=== PATIENT | female | born 1925 ===

== ENCOUNTER 2017-05-28 10:40 | Inpatient (IN) | payer MEDICAID, MEDICARE ==
[2017-05-28 10:42] VITALS: BMI 19.5
--- NOTE | 2017-05-28 11:10 | ED PDOC ---
Upper Extremity Pain/Injury Time Seen by Provider: 05/28/17 10:52 Chief Complaint (Nursing): Upper Extremity Problem/Injury Chief Complaint (Provider): Upper and Lower Extremity Problem/Injury History Per: Patient History/Exam Limitations: no limitations Onset/Duration Of Symptoms: Mins Current Symptoms Are (Timing): Still Present Additional Complaint(s): Pt is an 89 y/o female with a past medical history of hypertension who presents to the emergency department with a complaint of a right wrist pain, and knee pain bilaterally (right worse than left) after crossing and falling on the sidewalk frontward onto her hand and knees just prior to arrival. Patient takes Aspirin 81 mg daily. Denies headache. Pt did not hit her head. No LOC. PMD:. Dr. Genaro Kramer MD Past Medical History Reviewed: Historical Data, Nursing Documentation, Vital Signs Vital Signs: Last Vital Signs Temp 98.5 F 05/28/17 10:42 Pulse 63 05/28/17 10:42 Resp 18 05/28/17 10:42 BP 184/89 H 05/28/17 10:42 Pulse Ox 98 05/28/17 10:42 - Medical History PMH: HTN - Surgical History Surgical History: Appendectomy, Cholecystectomy - Family History Family History: States: No Known Family Hx - Social History Current smoker - smoking cessation education provided: No Alcohol: None Drugs: Denies - Home Medications Home Medications: Ambulatory Orders Medication Instructions Recorded Aspirin [Ecotrin] 81 mg PO DAILY 05/28/17 Furosemide [Lasix] 20 mg PO MWF 05/28/17 Metoprolol Tartrate [Lopressor] 25 mg PO BID 05/28/17 Multivitamin [Daily Akua] 1 tab PO DAILY 05/28/17 amLODIPine [Norvasc] 10 mg PO DAILY 05/28/17 Cephalexin [Keflex] 500 mg PO Q6 cap 06/02/17 Enoxaparin [Lovenox] 30 mg SC DAILY syr 06/02/17 Magnesium Oxide [Mag-Ox] 400 mg PO BID tab 06/02/17 guaiFENesin/Dextromethorphan 10 ml PO Q6 PRN 06/02/17 [Robitussin DM] - Allergies Allergies/Adverse Reactions: Allergies Allergy/AdvReac Type Severity Reaction Status Date / Time No Known Allergies Allergy Verified 05/28/17 10:52 Review of Systems ROS Statement: Except As Marked, All Systems Reviewed And Found Negative Constitutional: Negative for: Fever Cardiovascular: Negative for: Chest Pain Respiratory: Negative for: Shortness of Breath Gastrointestinal: Negative for: Nausea, Vomiting Musculoskeletal: Positive for: Hand Pain (Right wrist pain), Other (Knee pain b/ l) Neurological: Negative for: Headache Physical Exam - Reviewed Nursing Documentation Reviewed: Yes Vital Signs Reviewed: Yes - Physical Exam Appears: Positive for: Non-toxic, No Acute Distress Head Exam: Positive for: ATRAUMATIC, NORMAL INSPECTION, NORMOCEPHALIC Skin: Positive for: Normal Color, Warm, Dry Neck: Positive for: Normal, Supple Cardiovascular/Chest: Positive for: Regular Rate, Rhythm. Negative for: Murmur Respiratory: Positive for: Normal Breath Sounds. Negative for: Accessory Muscle Use, Respiratory Distress Gastrointestinal/Abdominal: Positive for: Normal Exam, Bowel Sounds, Soft. Negative for: Tenderness Back: Positive for: Normal Inspection Extremity: Positive for: Normal ROM (ROM intact with mild tenderness of the distal region of the right hand), Tenderness (Abrasion to the knees b/l w/ tenderness to the right patella), Swelling (Right hand/wrist with swelling/ deformity), Other (No neurovascular deficits) Neurologic/Psych: Positive for: Alert, Oriented (x3) - Laboratory Results Result Diagrams: 06/02/17 13:10 06/01/17 10:00 - ECG O2 Sat by Pulse Oximetry: 98 (RA) Pulse Ox Interpretation: Normal Medical Decision Making Medical Decision Making: Time: 10:55 Initial impression: Soft tissue swelling with hematoma s/p fall vs. fracture Initial plan: --Motrin 400 mg PO --Hand right x-ray --Wrist right x-ray --Knees BI x-ray --Reevaluation Time: 12:00 --X-rays read by me with Colles' fracture noted to the wrist. --Request for consult with Dr. Mere MONTALVO Time: 12:29 --Type and screen --EKG --BNP --BMP --Troponin I --PTT & INR --Chest x-ray --Urinalysis --Dr. Severino advised patient to be admitted to Med/Surg under the care of Dr. Kramer. This fracture will need to be repaired in the operating room. Time: 12:52 --Orthopedic Consult with Dr. Christopher Severino for Colles Fracture. --Admit to hospital routine as Inpatient in Med/Surg for 1) Right Colle's Fracture, 2) S/P Fall, 3) Knee contusions, 4) Hypertension under the care of Dr. Angelita Kramer Time: 12:44 --Knee x-ray FINDINGS: BONES: Right knee findings: The current study reveals no evidence of acute displaced fracture nor dislocation. The osseous structures appear intact. Joint spaces relatively preserved. Moderately large localized area of prepatellar soft tissue contusion -swelling. Left knee findings: No evidence of acute displaced fracture nor dislocation. The osseous structures intact. Joint spaces preserved. Suspect trace suprapatellar joint effusion. . Impression: No definitive radiographic evidence of acute displaced fracture nor dislocation. Moderately large localized area of prepatellar soft tissue contusion - swelling Time: 12:51 --Wrist x-ray FINDINGS: BONES: Current study reveals apparent comminuted fracture of the distal right radius with dorsal angulation of the distal fragment. There is also deformity of the distal ulna which is most consistent with old healed fracture deformity of. There is also a rounded cystic focus within the base of the ulnar styloid. JOINTS: No evidence of dislocation SOFT TISSUES: Surrounding soft tissue swelling. OTHER FINDINGS: None. IMPRESSION: Comminuted fracture distal right radius with dorsal angulation of the distal fragments. Findings most consistent with old healed fracture deformity distal ulna. Surrounding soft tissue swelling. Time: 12:52 --hand x-ray FINDINGS: BONES: Current study reveals apparent comminuted fracture of the distal right radius with dorsal angulation of the distal fragment. There is also deformity of the distal ulna which is most consistent with old healed fracture deformity of. There is also a rounded cystic focus within the base of the ulnar styloid. JOINTS: Normal. No osteoarthritic changes. SOFT TISSUES: Surrounding soft tissue swelling OTHER FINDINGS: None. IMPRESSION: Current study reveals apparent comminuted fracture of the distal right radius with dorsal angulation of the distal fragment. There is also deformity of the distal ulna which is most consistent with old healed fracture deformity of. There is also a rounded cystic focus within the base of the ulnar styloid. Scribe Attestation: Documented by Opal Sigala, acting as a scribe for Jose Ramon Teran MD. Provider Scribe Attestation: All medical record entries made by the Scribe were at my direction and personally dictated by me. I have reviewed the chart and agree that the record accurately reflects my personal performance of the history, physical exam, medical decision making, and the department course for this patient. I have also personally directed, reviewed, and agree with the discharge instructions and disposition. Disposition - Clinical Impression Clinical Impression: Colles' fracture of right radius, Fall, Contusion of knee, left, Contusion of knee, right, Hypertension - Patient ED Disposition Is Patient to be Admitted: Yes - Disposition Disposition: Transfer of Care (Admitted an Inpatient Med/Surg) Disposition Time: 12:51 Condition: FAIR - Pt Status Changed To: Hospital Disposition Of: Inpatient - Admit Certification Admit to Inpatient:: After my assessment, the patient will require hospitalization for at least two midnights. This is because of the severity of symptoms shown, intensity of services needed, and/or the medical risk in this patient being treated as an outpatient.
--- NOTE | 2017-05-28 12:46 | RAD ---
PROCEDURE: Bilateral knees 05/28/2017. AP lateral and sunrise views of the right and left knees performed. HISTORY: Bilateral knee trauma. COMPARISON: No prior FINDINGS: BONES: Right knee findings: The current study reveals no evidence of acute displaced fracture nor dislocation. The osseous structures appear intact. Joint spaces relatively preserved. Moderately large localized area of prepatellar soft tissue contusion -swelling. Left knee findings: No evidence of acute displaced fracture nor dislocation. The osseous structures intact. Joint spaces preserved. Suspect trace suprapatellar joint effusion. . Impression: No definitive radiographic evidence of acute displaced fracture nor dislocation. Moderately large localized area of prepatellar soft tissue contusion - swelling
[2017-05-28 12:47] LABS: RBC URINE 3 /hpf (0-3); URINE BILIRUBIN NEGATIVE (NEGATIVE); URINE BLOOD NEGATIVE (NEGATIVE); URINE COLOR STRAW (YELLOW); URINE GLUCOSE (UA) NEG (Normal); URINE KETONE NEGATIVE (NEGATIVE); URINE LEUKOCYTE ESTERASE MOD Leu/uL (Negative); URINE PROTEIN NEGATIVE (NEGATIVE); URINE UROBILINOGEN 0.2-1.0 mg/dL (0.2-1.0); WBC URINE 1 /hpf (0-5)
[2017-05-28 12:50] LABS: BASO % 0.6 % (0.0-2.0); EOS # 0.1 K/uL (0.0-0.7); EOS % 1.6 % (0.0-4.0); HEMATOCRIT 37.3 % (34.0-47.0); LYMPH # 1.4 K/uL (1.0-4.3); LYMPH % 20.1 % (20.0-40.0); MEAN CORPUSCULAR HEMOGLOBIN 31.9 pg (27.0-31.0); MEAN CORPUSCULAR HGB CONC 32.9 g/dL (33.0-37.0); MEAN PLATELET VOLUME 9.5 fl (7.2-11.7); MONO # 0.5 K/uL (0.0-0.8); MONO % 7.4 % (0.0-10.0); NEUT # 4.8 K/uL (1.8-7.0); NEUT % 70.3 % (50.0-75.0); RED CELL DISTRIBUTION WIDTH 13.6 % (11.5-14.5); WHITE BLOOD COUNT 6.9 K/uL (4.8-10.8)
--- NOTE | 2017-05-28 12:53 | RAD ---
PROCEDURE: Right wrist dated 05/28/2017 HISTORY: Right hand/wrist trauma COMPARISON: Comparison made with concurrent radiographs of the right hand FINDINGS: BONES: Current study reveals apparent comminuted fracture of the distal right radius with dorsal angulation of the distal fragment. There is also deformity of the distal ulna which is most consistent with old healed fracture deformity of. There is also a rounded cystic focus within the base of the ulnar styloid. JOINTS: No evidence of dislocation SOFT TISSUES: Surrounding soft tissue swelling. OTHER FINDINGS: None. IMPRESSION: Comminuted fracture distal right radius with dorsal angulation of the distal fragments. Findings most consistent with old healed fracture deformity distal ulna. Surrounding soft tissue swelling. The
--- NOTE | 2017-05-28 12:54 | RAD ---
PROCEDURE: Right Hand Radiographs. HISTORY: Right hand/wrist trauma COMPARISON: None. FINDINGS: BONES: Current study reveals apparent comminuted fracture of the distal right radius with dorsal angulation of the distal fragment. There is also deformity of the distal ulna which is most consistent with old healed fracture deformity of. There is also a rounded cystic focus within the base of the ulnar styloid. JOINTS: Normal. No osteoarthritic changes. SOFT TISSUES: Surrounding soft tissue swelling OTHER FINDINGS: None. IMPRESSION: Current study reveals apparent comminuted fracture of the distal right radius with dorsal angulation of the distal fragment. There is also deformity of the distal ulna which is most consistent with old healed fracture deformity of. There is also a rounded cystic focus within the base of the ulnar styloid.
[2017-05-28 12:57] LABS: ALB/GLOB RATIO 1.3 (1.0-2.1); ALKALINE PHOSPHATASE 113 U/L (38-126); ALT/SGPT 34 U/L (9-52); AST/SGOT 37 U/L (14-36); BILIRUBIN,TOTAL 0.6 mg/dl (0.2-1.3); BLOOD UREA NITROGEN 14 mg/dl (7-17); CALCIUM 9.4 mg/dL (8.4-10.2); CARBON DIOXIDE 27 mmol/L (22-30); CHLORIDE 107 mmol/L (98-107); GFR AFRICAN-AMERICAN 57; GLUCOSE,RANDOM 109 mg/dL (65-105); POTASSIUM 4.3 MMOL/L (3.6-5.0); SODIUM 143 mmol/l (132-148); TOTAL PROTEIN 7.6 G/DL (6.3-8.2)
[2017-05-28 13:01] LABS: PARTIAL THROMBOPLASTIN TIME 30.6 Seconds (25.6-37.1)
--- NOTE | 2017-05-28 15:42 | RAD ---
HISTORY: s/p fall COMPARISON: No prior. TECHNIQUE: Chest PA and lateral FINDINGS: LUNGS: Mild hyperinflation. Rule out underlying chronic changes of emphysema or COPD. Mild bibasilar atelectasis with slight elevation left hemidiaphragm. Mild biapical pleural thickening. PLEURA: No significant pleural effusion identified. No pneumothorax apparent. CARDIOVASCULAR: Heart appears borderline enlarged. Aorta is ectatic and uncoiled. Prominent pulmonary arteries; rule out underlying pulmonary arterial hypertension however the possibility of mediastinal adenopathy not excluded. Consider followup CT scan of the chest further evaluation. OSSEOUS STRUCTURES: Mild multilevel degenerative spondylosis of the thoracic spine. Chronic anterior wedge deformities of several upper/mid thoracic segments. VISUALIZED UPPER ABDOMEN: Normal. OTHER FINDINGS: None. IMPRESSION: Mild hyperinflation; rule out underlying chronic changes of emphysema or COPD Mild bibasilar atelectasis. Enlarged pulmonary arteries; rule out underlying pulmonary arterial hypertension; possibility of hilar adenopathy not excluded. Consider followup CT scan of the chest for further evaluation.
--- NOTE | 2017-05-28 19:45 | CARD ---
APPROVED REPORT EKG Measurement Heart [id number] IA [id number] [id number] <Conclusion> Sinus bradycardia Septal infarct, age undetermined Abnormal ECG
[2017-05-29] MEDS ORDERED: Patient's Own Med (Multivitamin [Daily Vite] 1 TAB) PO SCH (09:00)
--- NOTE | 2017-05-29 09:26 | CP.PCM.CON ---
History of Present Illness - History of Present Illness History of Present Illness: ID: 89 yo female CC: pain deformity and restricted ROM R wrist HPI: 89 yofemale fell while walkinG ON SIDEWALK YESTERDAY-PT SUSTAINED FALL On outstretched r upper ext Pt presents with pain and deformity R wrist- pt with marked discomfort,pain and restricted ROM R wrist presents to [facility] ER- pt evaluated, [place] of comorbidities, DR Sauceda wished pt admitted fro medical stabilization and then to OR Past Patient History - Past Social History Smoking Status: Never Smoked - CARDIAC Hx Cardiac Disorders: Yes Hx Hypertension: Yes - MUSCULOSKELETAL/RHEUMATOLOGICAL Hx Falls: Yes - PSYCHIATRIC Hx Substance Use: No - SURGICAL HISTORY Hx Appendectomy: Yes Hx Cholecystectomy: Yes - ANESTHESIA Hx Anesthesia: Yes Hx Anesthesia Reactions: No Meds Allergies/Adverse Reactions: Allergies Allergy/AdvReac Type Severity Reaction Status Date / Time No Known Allergies Allergy Verified 05/28/17 10:52 - Medications Medications: Current Medications Acetaminophen (Tylenol 325mg Tab) 650 mg PO Q6 PRN PRN Reason: Pain, moderate (4-7) Last Admin: 05/29/17 00:59 Dose: 650 mg Amlodipine Besylate (Norvasc) 10 mg PO DAILY [facility] Furosemide (Lasix) 20 mg PO MWF [facility] Home Med (Multivitamin [Daily Akua]) 1 tab PO DAILY [facility] Metoprolol Tartrate (Lopressor) 25 mg PO BID [facility] Last Admin: 05/28/17 23:35 Dose: 25 mg Multivitamins/Minerals (Therapeutic-M Tab) 1 tab PO DAILY [facility] Physical Exam - Additional Findings Additional findings: O/E systemic- as per DR Kramer Musculoskekltal stance/gait- deferred R upper ext with short arm splint applied pt with decreased sensation first 3 fingers R Hand Results - Vital Signs Recent Vital Signs: Last Vital Signs Temp 97.6 F 05/29/17 08:45 Pulse 61 05/29/17 08:45 Resp 20 05/29/17 08:45 BP 171/80 H 05/29/17 08:45 Pulse Ox 94 L 05/29/17 08:45 - Labs Result Diagrams: 05/28/17 12:44 05/28/17 12:44 - Impressions Impression: Xray- reveals comminuted displaced/ angulated distal; radius fracture Assessment & Plan - Assessment and Plan (Free Text) Assessment: A- comminuted/displaced distal radius fx pt with signs of median nerve compression no evidence for compartment syndrome p- TO or WEDNESDAY FOR orif DISPLACED/COMMINUTED DISTAL RADIUS FX CARPAL TUNNEL RELEASE WELL ENCOUNTER IS ACCOMPLISHED WITH GISELLE AND Memo, 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
[2017-05-29] MEDS: Multivitamin With Minerals Tab PO SCH (09:36)
--- NOTE | 2017-05-29 16:43 | CT ---
PROCEDURE: CT HEAD WITHOUT CONTRAST. HISTORY: falls COMPARISON: None available. TECHNIQUE: Axial computed tomography images were obtained through the head/brain without intravenous contrast. Radiation dose: Total exam DLP = 875.76 MGy-cm. This CT exam was performed using one or more of the following dose reduction techniques: Automated exposure control, adjustment of the mA and/or kV according to patient size, and/or use of iterative reconstruction technique. FINDINGS: HEMORRHAGE: No intracranial hemorrhage. BRAIN: There are mild chronic microangiopathic changes. No atrophy or chronic microvascular ischemic changes. VENTRICLES: There is mild age related global parenchymal volume loss and proportionate enlargement of the ventricles and cortical sulci. There is a cavum septum pellucidum. CALVARIUM: The skull base and calvarium are normal. . PARANASAL SINUSES: Predominantly clear. MASTOID AIR CELLS: Predominantly clear. OTHER FINDINGS: None. IMPRESSION: No acute intracranial abnormality. Mild chronic microangiopathic changes and mild age-related global parenchymal volume loss.
[2017-05-29] MEDS: Magnesium Oxide 400 mg Tab UD PO SCH (17:07)
[2017-05-29] MEDS ORDERED: guaiFENesin DM 200 mg-20 mg/10 ml UD PO PRN (22:29)
--- NOTE | 2017-05-30 00:58 | HP ---
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 The patient sustained pain on the right upper extremity as well as wounds in both knees. The patient was evaluated in the emergency room where she was found to have fracture of the right radius. Orthopedic consultation was done and the patient was admitted for further management. The patient had orthopedic consultation with Dr. Severino. The patient denied to have any loss of consciousness or any head trauma at the time of this fall. The patient denied to have any previous falls also before this time. REVIEW OF SYSTEMS: Negative. ALLERGIES: NO KNOWN ALLERGY. HOME MEDICATIONS: Include metoprolol, aspirin, Lasix 20 mg three times a week. SOCIAL HISTORY: No history of smoking, ETOH or substance abuse. PAST MEDICAL HISTORY: Hypertension, osteoarthritis, osteoporosis. FAMILY HISTORY: Noncontributory. PHYSICAL EXAMINATION: GENERAL: The patient is in bed, comfortable, not in any cardiopulmonary distress. VITAL SIGNS: Blood pressure 112/79, pulse is 80, respiratory rate 18 and temperature 98.2. HEENT: Pupils are equal and reactive to light and normal-appearing mucosa of the conjunctivae, oropharyngeal and nasal membrane mucosa. NECK: Supple. No JVD. No carotid bruit. No lymph node. No thyromegaly. CHEST AND LUNGS: Bilateral symmetrical expansion. Good air exchange. No rales. No rhonchi. CARDIOVASCULAR SYSTEM: PMI not localized. No additional sounds. ABDOMEN: Normoactive bowel sounds. No tenderness. No organomegaly. No masses. EXTREMITIES: Bilateral abrasion with both knees and the right upper extremity is in the cast. CENTRAL NERVOUS SYSTEM: Alert, awake and oriented x3 and no neurological deficit could be appreciated. ASSESSMENT: 1. Mechanical fall with fracture of the right radius and multiple skin abrasions. 2. Hypertension. 3. Osteoarthritis. PLAN: We will do echocardiogram and cardiac clearance and prepare the patient for surgery as per orthopedics. We will give also magnesium oxide 400 mg twice a day and stop aspirin as well as the Lasix and preparation for the surgery. Angelita Kramer MD [facility] # [id number] MTDMary
--- NOTE | 2017-05-30 02:26 | CON ---
DATE: 05/29/2017 REASON FOR CONSULTATION: Preoperative evaluation. HISTORY OF PRESENT ILLNESS: The patient is 89 years old female who has history of hypertension, who sustained a fall on the street with comminuted right distal radial fracture and being considered for orthopedic surgery on Wednesday. The patient denies fainting or passing out. When she fell on the street, the patient was by herself unattended, she was walking. The patient did sustain falls similar to that in the past with fracture of the right wrist. MEDICATIONS: Lasix 40 mg p.o. Wednesday, Wednesday, and Wednesday; Lopressor 25 mg twice a day; magnesium oxide 400 mg twice a day; Norvasc 10 mg once a day; Tylenol 1 tablet q.6h. p.r.n.. SOCIAL HISTORY: The patient is a nonsmoker. She lives with her daughter. REVIEW OF SYSTEMS: No dizziness. No palpitations. No fever or chills. No diarrhea. No progressive amnesia. PHYSICAL EXAMINATION: GENERAL: The patient is an elderly female, who does not appear to be in acute distress. VITAL SIGNS: Blood pressure 171/80, heart rate 61, temperature 97.6, and respirations 20. HEENT: Temporal wasting. Neck rigidity. CHEST: Clear. HEART: S1 and S2, regular. ABDOMEN: Soft. EXTREMITIES: No edema. A cast is applied to right forearm. LABORATORY DATA: Hemoglobin and hematocrit 12.3 and 37.3, white count and platelet counts are within normal limits. SMA-7 is within normal limits except for glucose of 109. PT/PTT are within normal limits. One set of troponin is negative. EKG revealed sinus bradycardia at a rate of 57. Poor R-wave progression. Right wrist and right hand x-ray revealed angulated comminuted fracture of the distal radius with an old fracture of the distal ulna. ASSESSMENT: 1. Status post fall with comminuted fracture of the distal right ulna with dorsal angulation. 2. Rule out syncope episode. 3. Hypertension. 4. Mild sinus bradycardia. RECOMMENDATIONS: Hold Lopressor for heart rate below 60. Continue Norvasc at 10 mg once a day. Obtain an echocardiogram and carotid Doppler as well as CT scan without contrast prior to okaying the patient for orthopedic surgery on Wednesday. Ran Lopes MD
[2017-05-30] MEDS: Multivitamin With Minerals Tab PO SCH (08:55)
[2017-05-30] MEDS: Magnesium Oxide 400 mg Tab UD PO SCH ×2 (08:55→16:47)
--- NOTE | 2017-05-30 09:44 | US ---
PROCEDURE: Duplex ultrasound of the carotid and vertebral arteries. HISTORY: falls COMPARISON: None available. TECHNIQUE: Grayscale and duplex Doppler evaluation of the cervical carotid and vertebral arteries were performed. The common carotid, carotid bifurcations and cervical ICA and proximal ECA were evaluated. The vertebral arteries were evaluated for gross patency and direction. FINDINGS: RIGHT CAROTID ARTERIES: Common Carotid Artery: Normal. Maximal flow velocity of 75.4 cm/s. Carotid Bifurcation: There are calcified no atherosclerotic plaques in the carotid bulbs without luminal narrowing. Internal Carotid Artery:Normal. Maximal flow velocity of 53.1 cm/s. External Carotid Artery (proximal branches): Normal. Maximal flow velocity of 59.6 cm/s. ICA/CCA Ratio: LEFT CAROTID ARTERIES: Common Carotid Artery: Normal. Maximal flow velocity of 87.9 cm/s. Carotid Bifurcation: Normal. Internal Carotid Artery:Normal. Maximal flow velocity of 59.5 cm/s. External Carotid Artery (proximal branches): Normal. Maximal flow velocity of 67.3 cm/s. ICA/CCA Ratio: VERTEBRAL ARTERIES: Right Vertebral Artery: Patent. Antegrade flow. Left Vertebral Artery: Patent. Antegrade flow. OTHER FINDINGS: None. IMPRESSION: No hemodynamically significant stenosis.
--- NOTE | 2017-05-30 10:16 | CP.PCM.PN ---
Subjective - Date & Time of Evaluation Date of Evaluation: 05/30/17 Time of Evaluation: 10:10 - Subjective Subjective: S- pain and restricted ROM swelling R wrist Objective - Vital Signs/Intake and Output Vital Signs (last 24 hours): Temp Pulse Resp BP Pulse Ox 97.9 F 68 18 136/73 93 L 05/30/17 08:21 05/30/17 08:21 05/30/17 08:21 05/30/17 08:56 05/30/17 08:21 - Medications Medications: Current Medications Acetaminophen (Tylenol 325mg Tab) 650 mg PO Q6 PRN PRN Reason: Pain, moderate (4-7) Last Admin: 05/29/17 21:39 Dose: 650 mg Amlodipine Besylate (Norvasc) 10 mg PO DAILY [facility] Last Admin: 05/30/17 08:56 Dose: 10 mg Guaifenesin/Dextromethorphan (Robitussin Dm) 10 ml PO Q6 PRN PRN Reason: Cough Home Med (Multivitamin [Daily Akua]) 1 tab PO DAILY [facility] Magnesium Oxide (Mag-Ox) 400 mg PO BID [facility] Last Admin: 05/30/17 08:55 Dose: 400 mg Metoprolol Tartrate (Lopressor) 25 mg PO BID [facility] Last Admin: 05/30/17 08:56 Dose: 25 mg Multivitamins/Minerals (Therapeutic-M Tab) 1 tab PO DAILY [facility] Last Admin: 05/30/17 08:55 Dose: 1 tab - Labs Labs: PT 10.8 Seconds (9.8-13.1) 05/28/17 12:44 INR 1.1 (0.9-1.2) 05/28/17 12:44 APTT 30.6 Seconds (25.6-37.1) 05/28/17 12:44 - Additional Findings Additional findings: Objective systemic- unchanged Musculoskekltal stance/gait- defrred long arm splint intact N/V intact persistent decrease in sensation first 3 fingers R hand Assessment and Plan - Assessment and Plan (Free Text) Assessment: A- distal radius fx- comminuted/displaced evidence of carpal tunnel syndrome as well P- to OR for ORIF displaced/comminuted distal radius fx and release carpal tunnel SURGWERY COULD NOT BE ACCOMPLISHED OVER WEEKEND BEACUSE OF PERSISITENT SWELLING AND LACK OF MEDICAL CLEARANCE iNFORMED CONSENT OBTAINED FROM PT AND DAUGHTER IN 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
[2017-05-31] MEDS: Lactated Ringer's 1,000 ML IV SCH (00:03)
--- NOTE | 2017-05-31 00:28 | PN ---
DATE: SUBJECTIVE: The patient denies any chest pain or shortness of breath. PHYSICAL EXAMINATION: VITAL SIGNS: Blood pressure 121/66, heart rate 90, temperature 98.9 and respirations 20. HEENT: Normocephalic. CHEST: Clear. HEART: S1 and S2 regular. EXTREMITIES: A cast is applied to the right forearm. ASSESSMENT: 1. Comminuted angulated distal right radius fracture. 2. Status post fall. 3. Hypertension. RECOMMENDATIONS: Continue Lopressor 25 mg twice a day. Norvasc at 10 mg once a day. I did review the CT scan of the head, which I ordered yesterday and revealed mild chronic microangiopathic changes. I did review the cardiac study, which revealed normal left ventricular systolic function. The patient can undergo her orthopedic surgery from the cardiac point of view with postoperative telemetry monitoring. Ran Lopes MD
[2017-05-31] MEDS: Magnesium Oxide 400 mg Tab UD PO SCH (08:50)
[2017-05-31] MEDS: Multivitamin With Minerals Tab PO SCH (08:51)
--- NOTE | 2017-05-31 10:01 | CARD ---
APPROVED REPORT EXAM: Two-dimensional and M-mode echocardiogram with Doppler and color Doppler. Other Information Quality : AverageRhythm : Tachycardia INDICATION Pre-Op 2D DIMENSIONS IVSd0.73 (0.7-1.1cm)LVDd3.99 (3.9-5.9cm) PWd1.10 (0.7-1.1cm)IVSs1.02 (0.8-1.2cm) LVDs2.81 (2.5-4.0cm)FS (%) 29.7 % PWs0.93 (0.8-1.2cm) M-Mode DIMENSIONS Left Atrium (MM)2.06 (2.5-4.0cm)IVSd0.94 (0.7-1.1cm) Aortic Root3.09 (2.2-3.7cm)LVDd5.74 (4.0-5.6cm) Aortic Cusp Exc.1.68 (1.5-2.0cm)PWd0.74 (0.7-1.1cm) IVSs1.03 cmFS (%) 36 % LVDs3.68 (2.0-3.8cm)PWs0.94 cm Mitral Valve MV E Yzahzijv77.9cm/sMV DECEL [id number] A Fdugslez85.0cm/s MV DLK37apR/A ratio0.7MVA (PHT)3.55cm2 TDI Lateral E' Peak V7.99cm/sMedial E' Peak V5.46cm/sE/Lateral E'9.0 E/Medial E'13.2 Pulmonary Valve PV Peak Grlyjkzi274.7cm/s Tricuspid Valve TR Peak Iepfrtue922yf/sRAP [id number] Peak Gr.29mmHg CUII23gvEt LEFT VENTRICLE The left ventricle is normal size. There is normal left ventricular wall thickness. The left ventricular function is normal. The left ventricular ejection fraction is 55-60% There is normal LV segmental wall motion. Transmitral Doppler flow pattern is Grade I-abnormal relaxation pattern. No left ventricle thrombus noted on this study. There is no ventricular septal defect visualized. There is no left ventricular aneurysm. There is no mass noted in the left ventricle. RIGHT VENTRICLE The right ventricle is normal size. There is normal right ventricular wall thickness. The right ventricular systolic function is normal. ATRIA The left atrium size is normal. The right atrium size is normal. The interatrial septum is intact with no evidence for an atrial septal defect. AORTIC VALVE The aortic valve is normal in structure and function. No aortic regurgitation is present. There is no aortic valvular stenosis. There is no aortic valvular vegetation. MITRAL VALVE The mitral valve is normal in structure and function. There is no evidence of mitral valve prolapse. There is no mitral valve stenosis. There is no mitral valve regurgitation noted. TRICUSPID VALVE The tricuspid valve is normal in structure and function. There is no tricuspid valve regurgitation noted. There is no tricuspid valve prolapse or vegetation. There is no tricuspid valve stenosis. PULMONIC VALVE The pulmonary valve is normal in structure and function. There is no pulmonic valvular regurgitation. There is no pulmonic valvular stenosis. GREAT VESSELS The aortic root is normal in size. The ascending aorta is normal in size. The IVC is normal in size and collapses >50% with inspiration. PERICARDIAL EFFUSION The pericardium appears normal. There is no pleural effusion. <Conclusion> Normal Echocardiogram
[2017-05-31] MEDS ORDERED: Bupivacaine 0.5% Inj(30mL) ONE (11:09)
[2017-05-31] MEDS ORDERED: Lidocaine 1% Inj (20ml) ONE (11:09)
[2017-05-31] MEDS ORDERED: methylPREDNISolone Depo 80 mg/ml Inj ONE (11:09)
[2017-05-31] MEDS ORDERED: Rocuronium 10 mg/ml (5 ml) ONE (11:09)
[2017-05-31] MEDS ORDERED: Propofol 10 mg/ml Inj (20 ML) ONE (11:09)
[2017-05-31] MEDS ORDERED: Lactated Ringer's 1,000 ML IV ONE ×2 (11:15→18:07)
[2017-05-31] MEDS ORDERED: ePHEDrine 50 mg/ml Inj ONE (11:19)
[2017-05-31] MEDS ORDERED: Neostigmine Methylsulfate 3mg/3ml Syringe IV ONE (12:53)
[2017-05-31] MEDS ORDERED: Bacitracin Ointment 30 GM TUBE ONE (13:17)
--- NOTE | 2017-05-31 13:33 | PCM.SURG1 ---
Surgeon's Initial Post Op Note - Surgeon's Notes Surgeon: Mere Registered Nurse Midwife: MICHAELLE Norris Type of Anesthesia: General Endo Anesthesia Administered By: DR Oliverio Regan Pre-Operative Diagnosis: Dispalced/angulated distal radius fx. carpal tunnel syndrome. flexor tenosynovitis Operative Findings: as above Post-Operative Diagnosis: same Operation Performed: ORIF displaced/angulated distal radius fx. release L carpal tunne;. partial median neurolysis. partial flexor tenosynovectomy. applx volar splint Specimen/Specimens Removed: fx callous/tenosynovium/epineurium Estimated Blood Loss: EBL {In ML}: 10 Blood Products Given: N/A Drains Used: No Drains Post-Op Condition: Good Date of Surgery/Procedure: 05/31/17 Time of Surgery/Procedure: 12:05 (time in room/anestheisa indcution time 11:15)
[2017-05-31] MEDS ORDERED: HYDROmorphone 0.5 mg/0.5 ml ISec IVP PRN (14:30)
--- NOTE | 2017-05-31 14:34 | PCM.ANESB4 ---
Infraclavicular Block - Femoral Nerve Block Date of Procedure: 05/31/17 Anesthesiologist: Oliverio Regan Pre-Procedure Diagnosis: Distal Right Radius Fracture Post-Procedure Diagnosis: same Procedure Performed: Brachial Plexus at the Infraclavicular area Right - Procedure Infraclavicular Block: The procedure was explained to the patient that it is for the post-operative pain management. Consent was obtained after a thorough discussion with the patient regarding the benefits and possible complications of local anesthetic block of the brachial plexus at the infraclavicular area. The patient was brought to the post-anesthesia care unit and standard monitors were applied. Time-out was held with the circulating nurse to confirm the correct surgery and the appropriate block. After applying oxygen by nasal cannula and administering IV Sedation, patient's head was gently rotated away from the operative shoulder and the area medial to the coracoid process and inferior to the clavicle was carefully palpated. The ultrasound transducer was then applied to the skin in the transverse plane and the brachial plexus was visualized surrounding the axillary artery and deep to the pectoralis major and minor muscles. After thorough identification, this area was prepped with Betadine solution three times and 1 % Lidocaine was injected subcutaneously for topical anesthesia. At this point, a #21 gauge Stimuplex 4-inch needle was inserted cephalad to the ultrasound transducer and inferior to the clavicle in-plane towards the posterior aspect of the axillary artery. Needle advancement was performed carefully under ultrasound visualization. Nerve stimulator was used and twitch of the affected extremity including fingers, hand, wrist and elbow was obtained at current of _0.4MA. After repeated negative aspiration, _15cc of _0.5 bupivacaine was injected. Under ultrasound guidance the local anesthetics were observed surrounding the cords of the brachial plexus. The needle was removed intact and sterile dressing was applied. The patient had stable vital signs, was conscious and in no apparent distress. The patient tolerated the infraclavicular block of the brachial plexus well with stable vital signs.
--- NOTE | 2017-05-31 17:36 | RAD ---
PROCEDURE: Right Wrist Radiographs. HISTORY: s/p orif rt. radius fx COMPARISON: Right wrist 05/28/2017 FINDINGS: BONES: Patient is status post open reduction internal fixation of distal right radial fracture via a solitary compression plate at the volar side of the distal right radius transfixed by at least 9 screws. Postop soft tissue changes are identified. Ulna remains intact though with a probable old healed fracture. Carpal bones are remarkable only for degenerative joint disease once again. JOINTS: As per above SOFT TISSUES: As per above OTHER FINDINGS: None. IMPRESSION: Status post open reduction and internal fixation of distal right radial fracture with postop soft tissue changes noted.
--- NOTE | 2017-05-31 22:14 | PCM.OP ---
Operative Report - Operative Report Date of Surgery/Procedure: 05/31/17 Time of Surgery/Procedure: 12:05 (time in room 11:15) Surgeon: Mere [place] Marshal: MICHAELLE Norris Anesthesia/Sedation: BIJUA- Dr Oliverio hernandez Pre-Operative Diagnosis: displaced/angulated distal radius fx R wrist. carpal tunnel syndrome R wrist Post-Operative Diagnosis: as above Indication for Surgery: s/p treaumatic fx with ensuing posttraumatic carpal tunnel syndrome Operative Findings: as above. flexor tenosynovitis. compression median nerve Procedure/Operation Description: ORIF displaced distal radius fx- not intrarticular. median nerve decompression'partial median neurolysyis. partial flexor tenosynvoectomy. division transverse carpal ligament. allograft bone graft. positioning of fluor/interpretatiopn of video images. Operative procedure. After having obtained informed consent in th prescence of the culturally competent dealer sales manager, after the satiosfactory induction of gETA, after having identiified side site and procedure in a critical pause/timeout, the R upper ext is prepped and draped in the ususal fashion for upper extremity surg. The tourniqut which had been applied is inflated to 250 mmhg. An incisionis described in the median palmar crease and deviates ulnarly. From there a voaly Marcelino approach is accomplished the inetrval between the palmaris longus and the flexor carpi radialis is developed. The transverse capral ligament is idetified and is released in its entirey. The median nerve is identiifed, and a partial median neurolysis is accomplished. A partial flexor tenosynvectomy is accomplished. the interval is developed and the pronator quadratus is identified. it is carefuukly divided, the fracture site is identiifed after the arthrotomy of the wirist is accomplished. The fx is reduced The volar locking plate is applied to the vaolar aspect of the bone. Each sequential hole is drilled and the appropriate size scrfew is introduced. the fixation is macceptable and the fx is well reduced Allograft bone grafting is ap-plied and the wrist capsule is closed closure is with interrupted vicryl and nylon Verification of position ismoffered oin A/P and lateral image intensification views. Omid Robles dressing and volar splint is applied. End op note Dr Severino Estimated Blood Loss: 5 Blood Replaced: 0 Sponge/Instrument Count: correct Drains: none Complications: none Specimen: tebnosynovium/epineurium,fx callous Discharge & Condition: stable
[2017-06-01] MEDS: HYDROmorphone 0.5 mg/0.5 ml ISec IVP PRN ×5 (00:14→20:51)
--- NOTE | 2017-06-01 01:57 | PN ---
SUBJECTIVE: The patient had ORIF today by Dr. Severino. PHYSICAL EXAMINATION: VITAL SIGNS: Blood pressure is 131/68, temperature 98.3, respiratory rate 18, and pulse 85. NECK: Supple. No JVD. No carotid bruit. No lymph node. No thyromegaly. CHEST AND LUNGS: Bilateral symmetrical expansion. Good air exchange. No rales. No rhonchi. CARDIOVASCULAR SYSTEM: PMI not localized. S1 and S2. No additional sounds. ABDOMEN: Normoactive bowel sounds. No tenderness. No organomegaly. No masses. EXTREMITIES: No cyanosis. No clubbing. No edema. CENTRAL NERVOUS SYSTEM: Alert, awake. No neurological deficit could be appreciated. ASSESSMENT: 1. Status post open reduction internal fixation, right radius. 2. Status post fall with fracture of the right radius and multiple skin abrasions. 3. Hypertension. 4. Osteoarthritis. PLAN: Followup surgical recommendation regarding postoperative course. Continue current medications. Monitor the patient on telemetry as per cardiology recommendations. Angelita Kramer MD
[2017-06-01] MEDS: Lactated Ringer's 1,000 ML IV SCH ×3 (07:00→16:59)
--- NOTE | 2017-06-01 08:10 | RAD ---
PROCEDURE: INTRAOPERATIVE FLUOROSCOPY RIGHT WRIST HISTORY: FX RIGHT WRIST COMPARISON: right wrist radiographs 05/28/2017 TECHNIQUE: Intraoperative fluoroscopy was provided to assist the referring physician open reduction internal fixation of distal right radial fracture. FINDINGS: Spot fluoroscopic images of been submitted demonstrating preliminary and postreduction views with a solitary compression plate identified at the volar distal radius transfixed to the distal radius using multiple screws with fracture appearing adequately reduced. Please see operative report further detail. 5.7 seconds of fluoro time was used was utilized with 0.15 mGy total dose radiation. IMPRESSION: Open reduction and internal fixation of distal right radial fracture.
[2017-06-01] MEDS: Magnesium Oxide 400 mg Tab UD PO SCH ×2 (08:26→16:38)
[2017-06-01] MEDS: Multivitamin With Minerals Tab PO SCH (08:26)
--- NOTE | 2017-06-01 08:27 | CP.PCM.PN ---
Subjective - Date & Time of Evaluation Date of Evaluation: 06/01/17 Time of Evaluation: 08:25 - Subjective Subjective: S- pt comfortable with minimal post op discomfort Objective - Vital Signs/Intake and Output Vital Signs (last 24 hours): Temp Pulse Resp BP Pulse Ox 99.1 F 77 20 131/66 92 L 06/01/17 08:00 06/01/17 08:00 06/01/17 08:00 06/01/17 08:00 06/01/17 08:00 - Medications Medications: Current Medications Acetaminophen (Tylenol 325mg Tab) 650 mg PO Q6 PRN PRN Reason: Pain, moderate (4-7) Last Admin: 05/29/17 21:39 Dose: 650 mg Amlodipine Besylate (Norvasc) 10 mg PO DAILY [facility] Last Admin: 05/31/17 08:51 Dose: Not Given Cephalexin Monohydrate (Keflex) 500 mg PO Q6 [facility] Last Admin: 06/01/17 04:17 Dose: 500 mg Guaifenesin/Dextromethorphan (Robitussin Dm) 10 ml PO Q6 PRN PRN Reason: Cough Home Med (Multivitamin [Daily Akua]) 1 tab PO DAILY [facility] Hydromorphone HCl (Dilaudid) 0.5 mg IVP Q4 PRN PRN Reason: Pain, severe (8-10) Last Admin: 06/01/17 04:17 Dose: 0.5 mg Lactated Ringer's (Lactated Ringer's) 1,000 mls @ 60 mls/hr IV .[id number] [facility] Last Admin: 05/31/17 00:03 Dose: 60 mls/hr Lactated Ringer's (Lactated Ringer's) 1,000 mls @ 75 mls/hr IV .[id number] [facility] Last Admin: 06/01/17 07:00 Dose: 75 mls/hr Magnesium Oxide (Mag-Ox) 400 mg PO BID [facility] Last Admin: 05/31/17 08:50 Dose: Not Given Metoprolol Tartrate (Lopressor) 25 mg PO BID [facility] Last Admin: 05/31/17 08:50 Dose: 25 mg Multivitamins/Minerals (Therapeutic-M Tab) 1 tab PO DAILY [facility] Last Admin: 05/31/17 08:51 Dose: Not Given - Labs Labs: PT 10.8 Seconds (9.8-13.1) 05/28/17 12:44 INR 1.1 (0.9-1.2) 05/28/17 12:44 APTT 30.6 Seconds (25.6-37.1) 05/28/17 12:44 - Skin Additional comments: Objective pt comfortable at time of encounter orthop[ediucally stable post op xrays-acceptable position of construct Assessment and Plan - Assessment and Plan (Free Text) Assessment: A- s/p ORIF displaced distal radius fx/s/p carpal tunnel release P- orthopedically stable pt encourage to continue ROM fingers
[2017-06-01 10:30] LABS: HEMATOCRIT 31.7 % (34.0-47.0); MEAN CELL VOLUME 96.9 fl (81.0-99.0); MEAN CORPUSCULAR HEMOGLOBIN 31.3 pg (27.0-31.0); MEAN CORPUSCULAR HGB CONC 32.3 g/dL (33.0-37.0); RED CELL DISTRIBUTION WIDTH 13.3 % (11.5-14.5); WHITE BLOOD COUNT 14.1 K/uL (4.8-10.8)
[2017-06-01 10:34] LABS: BLOOD UREA NITROGEN 17 mg/dl (7-17); CALCIUM 8.5 mg/dL (8.4-10.2); CARBON DIOXIDE 26 mmol/L (22-30); CHLORIDE 99 mmol/L (98-107); GFR AFRICAN-AMERICAN > 60; GLUCOSE,RANDOM 130 mg/dL (65-105); POTASSIUM 4.8 MMOL/L (3.6-5.0); SODIUM 134 mmol/l (132-148)
[2017-06-01] MEDS: Enoxaparin 30 mg Syringe SC SCH (16:34)
--- NOTE | 2017-06-01 18:27 | CARD ---
APPROVED REPORT EKG Measurement Heart [id number] <Conclusion> Normal sinus rhythm with sinus arrhythmia Nonspecific ST and T wave abnormality vs artifacts Abnormal ECG
--- NOTE | 2017-06-01 22:58 | PN ---
DATE: SUBJECTIVE: The patient underwent open reduction internal fixation of distal radius fracture yesterday and she was transferred to telemetry. There is no reports of ventricular arrhythmia and the patient denies any chest pain. PHYSICAL EXAMINATION: VITAL SIGNS: Blood pressure 124/66, heart rate is 75, temperature 98.6, respirations 20. HEENT: Pale conjunctivae. CHEST: Clear. HEART: S1 and S2 regular. ABDOMEN: Soft. EXTREMITIES: No edema. LABORATORY DATA: SMA-7 are within normal limits except for glucose of 130. Hemoglobin and hematocrit 10.2 and 31.7, white count 14.1, platelet count 123,000. ASSESSMENT: 1. Status post open reduction internal fixation of right radial fracture. 2. History of recurrent falls. 3. Hypertension. RECOMMENDATION: Continue current telemetry monitoring. Continue Norvasc 10 mg once a day, Lovenox 15 mg once a day, Lopressor 25 mg twice a day, 0.5 mg intravenous q.4 hours p.r.n. I requested the postoperative EKG. Ran Lopes MD
--- NOTE | 2017-06-02 01:52 | PN ---
DATE: 06/01/2017 SUBJECTIVE: She is not in any cardiopulmonary distress postoperative day #1. PHYSICAL EXAMINATION VITAL SIGNS: Blood pressure 115/65, temperature 98.7, respiratory rate 20, and pulse 73. HEENT: Pupils are equal and reactive to light. Normal-appearing mucosa of the conjunctivae, oropharynx, and nasal membrane mucosa. NECK: Supple. No JVD. No carotid bruit. No lymph node. No thyromegaly. CHEST AND LUNGS: Bilaterally symmetrical expansion. Good air exchange. No rales. No rhonchi. CARDIOVASCULAR SYSTEM: PMI not localized. S1 and S2. No additional sounds. ABDOMEN: Normoactive bowel sounds. No tenderness. No organomegaly. No masses. EXTREMITIES: No cyanosis. No clubbing. No edema. Right upper extremity is placed in a cast and is fixed in a sling upward. ASSISTANT TERMINAL MANAGER: Alert, awake, and oriented x2 and moves all extremities equally. ASSESSMENT AND PLAN: 1. Fall with fracture of right radius status post open reduction and internal fixation. 2. Hypertension. 3. Osteoarthritis. PLAN: Follow recommendations of orthopedic. Continue current patient's medications. Physical therapy as ordered by orthopedic. Toro MD Williams
[2017-06-02] MEDS: Lactated Ringer's 1,000 ML IV SCH (06:51)
[2017-06-02 08:08] VITALS: RESP 20
[2017-06-02] MEDS: Multivitamin With Minerals Tab PO SCH (08:58)
[2017-06-02] MEDS: Magnesium Oxide 400 mg Tab UD PO SCH ×2 (08:59→16:16)
[2017-06-02] MEDS: Enoxaparin 30 mg Syringe SC SCH (08:59)
[2017-06-02] MEDS: HYDROmorphone 0.5 mg/0.5 ml ISec IVP PRN ×2 (12:13→16:22)
[2017-06-02 13:14] LABS: HEMATOCRIT 31.3 % (34.0-47.0); MEAN CELL VOLUME 96.2 fl (81.0-99.0); MEAN CORPUSCULAR HEMOGLOBIN 31.4 pg (27.0-31.0); MEAN CORPUSCULAR HGB CONC 32.6 g/dL (33.0-37.0); RED CELL DISTRIBUTION WIDTH 13.2 % (11.5-14.5); WHITE BLOOD COUNT 13.8 K/uL (4.8-10.8)
--- NOTE | 2017-06-02 15:06 | PN ---
DATE: SUBJECTIVE: The patient is experiencing sore throat. No chest pain. No shortness of breath. PHYSICAL EXAMINATION: VITAL SIGNS: Blood pressure 137/68, heart rate 71, temperature 98.3, and respirations 20. HEENT: Pale conjunctivae. CHEST: Clear. HEART S1 and S2 regular. EXTREMITIES: No edema. LABORATORY DATA: EKG done yesterday revealed sinus rhythm with nonspecific acute ST-T wave changes versus heart defects. ASSESSMENT: 1. Status post open reduction and internal fixation for angulated comminuted distal right radial fracture. 2. Hypertension. 3. History of recurrent falls. CONDITIONS: Continue Lopressor 25 mg twice a day, IV p.r.n. Dilaudid 0.5 mg q.4 hours, and Norvasc 10 mg once a day. Change nasal O2 to humidified nasal O2. The plan is to transfer the patient to [facility] today. Ran Lopes MD
[2017-06-02 16:23] VITALS: BP 110/62; PULSE 72
[2017-06-02 16:39] VITALS: TEMP 98.2
--- NOTE | 2017-06-03 09:46 | DS ---
REASON FOR ADMISSION: This is an 89-year-old female who has history of multiple medical problems, was admitted after fall and fracture of the right radius. COURSE OF HOSPITALIZATION: Patient was admitted to the medical floor and she had an orthopedic consultation done. The patient underwent open reduction and internal fixation of the right radius by Dr. Severino. The patient did well and she was discharged to subacute rehabilitation for pain management and for acute rehab. FINAL DIAGNOSES: 1. Fall. 2. Hypertension. 3. Fracture right radius, status post open reduction and internal fixation. [facility] MD Williams
[2017-06-04 17:41] VITALS: O2SAT 98
--- NOTE | 2017-06-17 04:09 | OP ---
PROCEDURE DATE: 05/31/2017 PREOPERATIVE DIAGNOSES: 1. Displaced angulated left distal radius fracture. 2. Carpal tunnel syndrome posttraumatic. POSTOPERATIVE DIAGNOSIS: 1. Displaced angulated distal radius fracture, left wrist. 2. Posttraumatic carpal tunnel syndrome. 3. Flexor tenosynovitis. PROCEDURE: 1. Open reduction and internal fixation displaced angulated distal radius fracture, left. 2. Released left carpal tunnel. 3. Partial medial neurolysis left wrist. 4. Partial flexor tenosynovectomy. 5. Application of volar splint. SURGEON: Christopher Severino MD INFECTION CONTROL NURSE: JENA Evangelista, certified registered nursing. ESTIMATED BLOOD LOSS: 10 mL No blood products. DRAINS: No. SPECIMEN: Removed fracture callus, tenosynovium and epineurium. OPERATIVE FINDINGS: As above. POSTOPERATIVE CONDITION: Stable. TIME OF SURGERY: Incision time 12:05, anesthesia induction time 11.15. OPERATIVE INDICATION: Yoon Canchola is an 89-year-old woman, who sustained a fall in an outstretched wrist. The patient presents with displaced comminuted angulated distal radius fracture and evidence of posttraumatic carpal tunnel syndrome. Pros, cons, risks, and benefits of surgical approach were discussed. The possibility of mechanical failure, infection, thromboembolic disease, risk of stiffness secondary to tertiary surgery was discussed. The patient can no longer withstand the discomfort and wished the surgery to be accomplished. DESCRIPTION OF PROCEDURE: After having obtained informed consent through the building maintenance custodian after having identified side, site and procedure, and a critical pause/time-out. After the satisfactory induction of anesthetic, the patient identified as Yoon Canchola in the supine position with all bony prominences well padded. The left upper extremity was prepped and free-draped in the usual fashion for left upper extremity surgery. A tourniquet have been applied, but is not yet inflated. After exsanguinated the limb using a 4-inch Esmarch bandage, the tourniquet which had been applied is inflated to 250 mmHg. The operation is performed under magnification. The median palmar crease is identified of the incision deviated radially at the distal crease and deviated proximally in the interval between palmaris longus and the flexor carpi radialis. The skin incision is carried down through the skin, subcutaneous tissue, the flap is elevated and tagged. The interval was developed. At this point in time, the transverse carpal ligament is released in its entirety. There was found to be compression in the median nerve from the fracture fragments. The fracture was reduced decompressing the median nerve. A careful partial median neurolysis accomplished under magnification and an external neurolysis is accomplished. A careful partial flexor tenosynovectomy is accomplished. The wound is thoroughly irrigated. Partial flexor tenosynovectomy is accomplished. The medial epineurium is excised. Excision of the epineurium is accomplished, partial flexor tenosynovectomy is accomplished, release of the transverse carpal ligament is accomplished. The interval is developed. Great care was taken to avoid injury to the palmar cutaneous branch of the median nerve. Capsule was identified and opened a bit. The fracture is reduced with traction and with insertion of an osteotome into the fracture fragment reducing the fracture. A locking T-plate is placed on the volar aspect of the fracture. Each sequential drill hole was drilled, sounded, and the appropriate size screw placed. The wound is thoroughly irrigated. Verification of position are from AP and lateral image intensification views. Position was found to be acceptable. The capsule was closed and further closure is with interrupted Vicryl and Nylon. Omid Robles compression dressing and volar splint was applied. OPERATIVE PROCEDURE: 1. Open reduction and internal fixation of displaced radius fracture. 2. Release carpal tunnel (release transverse carpal ligament with partial excision). 3. Partial flexor tenosynovectomy. 4. Partial median neurolysis. 5. Intraarticular injection. 6. Application of volar splint. Christopher Severino MD
== END 2017-06-02 17:39 | DRG 227 ==
LOC: H.ER 10:40 → H.ERHOLD 12:52 → H.MEDSURG1 14:23 → H.TEL 05-31 18:46
PROVIDERS: ADMIT Internal Medicine; ATTEND Internal Medicine
PROC: 0LB50ZZ Excision of Right Lower Arm and Wrist Tendon, Open Approach (ICD-10-PCS; 2017-05-31)
PROC: 01N50ZZ Release Median Nerve, Open Approach (ICD-10-PCS; 2017-05-31)
PROC: 01N50ZZ Release Median Nerve, Open Approach (ICD-10-PCS; 2017-05-31)
PROC: 0PSH04Z Reposition Right Radius with Internal Fixation Device, Open Approach (ICD-10-PCS; principal; 2017-05-31 16:15)
DX: S52.531A Colles' fracture of right radius, initial encounter for closed fracture (principal); R00.1 Bradycardia, unspecified; I10 Essential (primary) hypertension; S80.01XA Contusion of right knee, initial encounter; S80.02XA Contusion of left knee, initial encounter; M19.90 Unspecified osteoarthritis, unspecified site; M65.9 Synovitis and tenosynovitis, unspecified; G56.01 Carpal tunnel syndrome, right upper limb; M81.0 Age-related osteoporosis without current pathological fracture; W10.1XXA Fall (on)(from) sidewalk curb, initial encounter; Y92.480 Sidewalk as the place of occurrence of the external cause; Y93.01 Activity, walking, marching and hiking; Z79.82 Long term (current) use of aspirin; Z79.899 Other long term (current) drug therapy; Z90.49 Acquired absence of other specified parts of digestive tract; R29.6 Repeated falls; J02.9 Acute pharyngitis, unspecified